=== PATIENT | female | born 1990 | race Caucasian/White ===

== ENCOUNTER 2018-12-08 21:18 | Observation (INO) | payer MEDICAID ==
[~2018-12-08] VITALS: Ht 165.1 cm; Wt 85.3 kg
[~2018-12-08 21:18] MED LIST: PREN-153 OR
[2018-12-08] MEDS ORDERED: URSO300C9 PO (22:42)
== END 2018-12-09 00:14 | disposition home or self-care (01) | DRG 566 ==
LOC: LDRP 21:18
PROVIDERS: ADMIT Obstetrics & Gynecology; ATTEND Obstetrics & Gynecology
DX: O26.893 Other specified pregnancy related conditions, third trimester (principal); N89.8 Other specified noninflammatory disorders of vagina; R10.9 Unspecified abdominal pain; Z3A.38 38 weeks gestation of pregnancy
CPT/HCPCS: 59025; 76815; 81002; G0378

== ENCOUNTER 2018-12-11 10:35 | Observation (INO) | payer MEDICAID ==
[~2018-12-11] VITALS: Ht 165.1 cm; Wt 86.2 kg
[~2018-12-11 10:35] MED LIST changes: +URSO300C9 PO
== END 2018-12-11 11:45 | disposition home or self-care (01) | DRG 566 ==
LOC: LDRP 10:35
PROVIDERS: ADMIT Specialist; ATTEND Specialist
DX: O26.893 Other specified pregnancy related conditions, third trimester (principal); O41.03X0 Oligohydramnios, third trimester, not applicable or unspecified; N89.8 Other specified noninflammatory disorders of vagina; L29.9 Pruritus, unspecified; Z3A.38 38 weeks gestation of pregnancy
CPT/HCPCS: 59025; 76818; 81002; G0378

== ENCOUNTER 2018-12-12 08:09 | Inpatient (IN) | payer MEDICAID ==
[~2018-12-12] VITALS: Ht 165.1 cm; Wt 86.2 kg
[2018-12-12] VITALS (12 sets, daily range): BP systolic 77–108; BP diastolic 47–59
[2018-12-12] MEDS ORDERED: DERMOPLAST 60ML BOTTLE TOP PRN ×2 (08:45→09:45)
[2018-12-12] MEDS ORDERED: WITCH HAZEL-GLYCERIN PAD TOP PRN ×2 (08:45→09:45)
[2018-12-12] MEDS ORDERED: NALBUPHINE HCL 10 MG/1ml INJECTION IV PRN ×2 (08:45→09:45)
[2018-12-12] MEDS ORDERED: PHISODERM TOP SOLN 240ML BTL TOP PRN ×2 (08:45→09:45)
[2018-12-12] MEDS ORDERED: LACTATED RINGER'S 1,000 ML IV SCH (08:45)
[2018-12-12] MEDS: LACTATED RINGER'S 1,000 ML IV SCH ×2 (08:51→16:27)
[2018-12-12 09:23] LABS: Basophils # (auto) 0.1 uL; Eosinophils # (auto) 0.1 uL; Eosinophils % (auto) 1.4 % (0.0-7.0); Hematocrit 36.7 % (36.0-46.0); Hemoglobin 12.1 g/dL (12.2-16.2); Lymphocytes # (auto) 1.5 uL; Lymphocytes % (auto) 14.4 % (10.0-50.0); Mean Corpuscular Hemoglobin 29.7 pg (28.0-32.0); Mean Corpuscular Hgb Conc. 32.9 g/dL (32.0-36.0); Mean Corpuscular Volume 90.2 fL (80.0-100.0); Monocytes # (auto) 0.7 uL; Monocytes % (auto) 6.7 % (0.0-12.0); Neutrophils # (auto) 7.7 uL; Neutrophils % (auto) 76.5 % (37.0-80.0); Nucleated Red Blood Cells % 0.1 %; Platelet Count (auto) 194 10^3/uL (140-450); Red Blood Cells 4.07 10^6/uL (4.0-5.20); White Blood Cell 10.1 10^3/uL (4.4-10.8)
[2018-12-12 09:27] LABS: Albumin 2.5 g/dL (3.4-5.0); Calcium 8.9 mg/dL (8.5-10.1); Potassium 3.8 mmol/L (3.5-5.1)
[2018-12-12 09:30] LABS: BUN/Creatinine Ratio 10.9; Bilirubin, Total 0.4 mg/dL (0.2-1.0); Total Protein 6.3 g/dL (6.4-8.2)
[2018-12-12 10:12] LABS: Urine Bacteria FEW /hpf (None Seen); Urine Blood Negative /uL (Negative); Urine Specific Gravity 1.019 (1.001-1.035); Urine WBC 1 /hpf (0 - 5)
[2018-12-12 10:33] LABS: INR < 0.93 (0.9-1.15); Partial Thromboplastin Time 26.2 sec (23.64-32.05)
[2018-12-12 11:27] LABS: Albumin 2.6 g/dL (3.4-5.0); Calcium 8.8 mg/dL (8.5-10.1); Potassium 4.1 mmol/L (3.5-5.1)
[2018-12-12 11:32] LABS: BUN/Creatinine Ratio 11.5; Bilirubin, Total 0.4 mg/dL (0.2-1.0); Total Protein 5.9 g/dL (6.4-8.2)
[2018-12-12] MEDS ORDERED: LACT. RINGERS/OXYTOCIN 20UNITS 1,000 ML IV SCH (12:35)
[2018-12-12] MEDS ORDERED: LIDOCAINE 2%HCL (LOCAL ANESTH.) INJ 20ML MDV ID ONE (12:45)
[2018-12-12] MEDS ORDERED: LACTATED RINGER'S 500 ML IV ONE (15:10)
[2018-12-12] MEDS ORDERED: LACTATED RINGER'S 1,000 ML IV ONE (15:10)
[2018-12-12] MEDS ORDERED: fentaNYL W ROPIVACAINE 150 ML EPI SCH (15:15)
[2018-12-12] MEDS ORDERED: fentaNYL CITRATE 100 MCG/2 ML VL IV ONE (15:15)
[2018-12-12] MEDS ORDERED: LIDOCAINE HCL 2 %PF INJ 10ML AMP IJ ONE (15:15)
[2018-12-12] MEDS ORDERED: LIDOCAINE 2%HCL (LOCAL ANESTH.) INJ 20ML MDV IJ ONE (15:15)
[2018-12-12] MEDS ORDERED: NALOXONE HCL 0.4 MG/ML VIAL IV ONE (15:15)
[2018-12-12] MEDS ORDERED: ePHEDrine SULFATE 50 MG/ML AMP IV ONE (15:15)
[2018-12-12] MEDS ORDERED: IBUPROFEN 600 MG TAB PO PRN (18:00)
[2018-12-12 19:09] LABS: Basophils # (auto) 0 uL; Basophils % (auto) 0.3 % (0.0-2.0); Eosinophils # (auto) 0.1 uL; Eosinophils % (auto) 0.4 % (0.0-7.0); Hematocrit 29.5 % (36.0-46.0); Hemoglobin 9.6 g/dL (12.2-16.2); Lymphocytes # (auto) 1.3 uL; Lymphocytes % (auto) 8.2 % (10.0-50.0); Mean Corpuscular Hemoglobin 29.8 pg (28.0-32.0); Mean Corpuscular Hgb Conc. 32.7 g/dL (32.0-36.0); Mean Corpuscular Volume 91.2 fL (80.0-100.0); Monocytes # (auto) 0.8 uL; Monocytes % (auto) 5.4 % (0.0-12.0); Neutrophils # (auto) 13.5 uL; Neutrophils % (auto) 85.7 % (37.0-80.0); Nucleated Red Blood Cells % 0.1 %; Platelet Count (auto) 204 10^3/uL (140-450); Red Blood Cells 3.24 10^6/uL (4.0-5.20); White Blood Cell 15.7 10^3/uL (4.4-10.8)
--- NOTE | 2018-12-12 22:40 | NUR ---
Ambulation: Pericare provided, clean underpad and underwear provided. Patient OOB with standby assistance by RN. Patient to bedside chair with RN standby assistance, no distress noted. Clean gown provided and bed linen changed. Patient verbalizes that she feels dizzy and lightheaded at this time, patient back to bed with RN assitiance. After approx, 10min in bed patient verbalizes that dizziness and lightheadedness have resolved. Will continue care.
[2018-12-13] VITALS (11 sets, daily range): BP systolic 98–131; BP diastolic 51–82
[2018-12-13] MEDS ORDERED: SODIUM CHLORIDE 0.9% 1,000 ML IV SCH
[2018-12-13] MEDS: ACETAMINOPHEN 325 MG TAB PO PRN ×2 (03:32→15:06)
--- NOTE | 2018-12-13 04:00 | NUR ---
Pericare provided, clean peripad and underwear provided.
[2018-12-13 05:59] LABS: Basophils # (auto) 0 uL; Basophils % (auto) 0.1 % (0.0-2.0); Eosinophils # (auto) 0.1 uL; Eosinophils % (auto) 0.3 % (0.0-7.0); Hematocrit 28.3 % (36.0-46.0); Hemoglobin 9.5 g/dL (12.2-16.2); Lymphocytes # (auto) 1.5 uL; Lymphocytes % (auto) 9.2 % (10.0-50.0); Mean Corpuscular Hemoglobin 30.5 pg (28.0-32.0); Mean Corpuscular Hgb Conc. 33.6 g/dL (32.0-36.0); Mean Corpuscular Volume 90.8 fL (80.0-100.0); Monocytes % (auto) 6.5 % (0.0-12.0); Neutrophils # (auto) 13.5 uL; Neutrophils % (auto) 83.9 % (37.0-80.0); Platelet Count (auto) 153 10^3/uL (140-450); Red Blood Cells 3.12 10^6/uL (4.0-5.20); Red Cell Distribution Width 14.2 % (11.8-14.3)
--- NOTE | 2018-12-13 08:08 | NUR ---
Call placed to Dr Dennis, updated her on PT status including urine output, VS, and current H&H. Orders received to yaima/c eyal at this time
--- NOTE | 2018-12-13 08:25 | NUR ---
Birch catheter dc'd Order to discontinue birch catheter. Birch dc'd with clean technique following deflation of balloon. Patient tolerated well with no complaints of pain. 600ml urine output. Continue care.
--- NOTE | 2018-12-13 08:30 | NUR ---
PT up OOB to chair, no assist. PT tolerated well, no s/s pain or distress. PT denies dizziness, denies lightheadedness
--- NOTE | 2018-12-13 09:25 | NUR ---
PT voided but forgot to use hat so unable to measure amount. PT also passed large clot about the size of a grapefruit. PT back to bed, fundus and lochia assessed, scant lochia and fundus firm 1 below umbilicus
[2018-12-13 11:06] LABS: RPR Non Reactive (Non Reactive)
[2018-12-14 02:57] VITALS: BP 91/53
[2018-12-14] MEDS ORDERED: TETANUS-DIPTH-ACEL PERTUSSIS 0.5ML SYRG IM ONE (04:00)
--- NOTE | 2018-12-14 04:00 | NUR ---
IV removal IV's in right hand DC'd with clean sterile technique, catheter fully intact. Pressure dressings applied to site. Patient tolerated well. NOTE:
--- NOTE | 2018-12-14 04:05 | NUR ---
Discharge: Discharge instructions given as ordered. Pt encouraged to follow up with GRANTS ANALYST as instructed. All questions and concerns addressed. Patient verbalized understanding. Medication reconciliation completed. All required/requested vaccines given to patient.
[2018-12-14 06:57] VITALS: BP 119/76
--- NOTE | 2018-12-14 08:30 | NUR ---
Discharge: Discharge instructions given as ordered. Pt encouraged to follow up with SENIOR REACTOR OPERATOR as instructed. All questions and concerns addressed. Patient verbalized understanding. Medication reconciliation completed and copy given to patient. All required/requested vaccines given and copies of vaccinations given to patient. Patient encouraged to prepare to depart unit.
--- NOTE | 2018-12-14 09:02 | NUR ---
Discharge: Patient taken to vehicle via ambulation refusing wheelchair with all personal belongings, accompanied by staff and family member. No distress noted at time of departure, no adverse changes in status since initial assessment.
== END 2018-12-14 09:00 | disposition home or self-care (01) | DRG 560 ==
LOC: OBSVTOIN 08:09 → LDRP 08:09
PROVIDERS: ADMIT Obstetrics & Gynecology; ATTEND Obstetrics & Gynecology
PROC: 10E0XZZ Delivery of Products of Conception, External Approach (ICD-10-PCS; principal; 2018-12-12)
DX: O80 Encounter for full-term uncomplicated delivery (principal); Z37.0 Single live birth; Z3A.39 39 weeks gestation of pregnancy
CPT/HCPCS: 36415; 36430; 51702; 59025; 59409; 80053; 81001; 84112; 85025; 85610; 85730; 86592; 86850; 86900; 86901; 86920; 90715; 94762; 96365; 96366; G0378; J2590; J3010

== ENCOUNTER 2019-03-15 06:21 | Day surgery (SDC) | payer MEDICAID ==
[~2019-03-15] VITALS: Ht 165.1 cm; Wt 79.4 kg
[~2019-03-15 06:21] MED LIST changes: -URSO300C9 PO
[2019-03-15] MEDS ORDERED: SUCCINYLCHOLINE CHLORIDE 20 MG/ML 10ML VIAL IV ONE (06:50)
[2019-03-15] MEDS ORDERED: SODIUM CHLORIDE LOCK 10 ML ONE (06:52)
[2019-03-15] MEDS ORDERED: ONDANSETRON HCL 4 MG/2 ML VIAL ONE (06:52)
[2019-03-15] MEDS ORDERED: MEPERIDINE HCL (25 MG/ML) 1ML VIAL ONE (06:52)
[2019-03-15] MEDS ORDERED: PROPOFOL 10 MG/ML 20 ML IV ONE (06:52)
[2019-03-15] MEDS ORDERED: MIDAZOLAM HCL 1MG/1ML-2 ML VIAL ONE (06:52)
[2019-03-15] MEDS ORDERED: fentaNYL CITRATE 100 MCG/2 ML VL ONE (06:52)
[2019-03-15] MEDS ORDERED: LIDOCAINE 2% (LOCAL ANESTH.) PF 5ml SDV ONE (06:59)
[2019-03-15] MEDS ORDERED: LIDOCAINE HCL 2% TOP JELLY 5ML TOP ONE (06:59)
[2019-03-15] MEDS ORDERED: HYDROmorphone HCL 2 MG/ML VL IV PRN (07:30)
[2019-03-15] MEDS ORDERED: fentaNYL CITRATE 100 MCG/2 ML VL IV PRN (07:30)
[2019-03-15] MEDS ORDERED: METOCLOPRAMIDE HCL 5MG/ml INJ 2ml VIAL IV PRN (07:30)
[2019-03-15] MEDS ORDERED: KETOROLAC TROMETH 30 MG/ML 1ML VIAL IV ONE (07:30)
[2019-03-15] MEDS ORDERED: GLYCOPYRROLATE 0.2 MG/ML 1ML VIAL ONE (08:28)
[2019-03-15] MEDS ORDERED: NEOSTIGMINE 1 MG/ML INJ (10mg/10ML VIAL) ONE (08:28)
[2019-03-15] MEDS ORDERED: KETOROLAC TROMETH 60MG/2ML VIAL ONE (08:28)
[2019-03-15] MEDS ORDERED: LACTATED RINGER'S 1,000 ML IV SCH (08:50)
[2019-03-15] MEDS ORDERED: ONDANSETRON HCL 4 MG/2 ML VIAL IV PRN (09:00)
[2019-03-15 09:40] VITALS: BP 124/71
== END 2019-03-15 09:55 | disposition home or self-care (01) ==
LOC: SUR 06:21
PROVIDERS: ATTEND Specialist
DX: Z30.2 Encounter for sterilization (principal); J45.909 Unspecified asthma, uncomplicated; E66.9 Obesity, unspecified; Z68.29 Body mass index [BMI] 29.0-29.9, adult
CPT/HCPCS: 58671; 86850; 86900; 86901; J0330; J1885; J2001; J2175; J2250; J2405; J2704; J2765; J3010

== ENCOUNTER 2019-06-21 06:41 | Emergency (ER) | payer MEDICAID ==
[~2019-06-21] VITALS: Ht 165.1 cm; Wt 74.8 kg
[2019-06-21 07:17] VITALS: BP 139/64
[2019-06-21] MEDS ORDERED: methylPREDNISolone SOD SUCC 125 MG/2 ML VL IM ONE (07:45)
[2019-06-21] MEDS: IPRATROPIUM BROM 0.5 MG/2.5ML INH SOL NEB ONE ×2 (07:45→07:49)
[2019-06-21] MEDS: ALBUTEROL SULF 2.5 MG/0.5ML(0.5%) NEB SOLN NEB ONE ×2 (07:45→07:49)
== END 2019-06-21 08:37 | disposition home or self-care (01) ==
LOC: ER 06:41
DX: J45.901 Unspecified asthma with (acute) exacerbation (principal)
CPT/HCPCS: 94640; 96372; 99283; J2930; J7611; J7644

== ENCOUNTER 2023-08-30 06:11 | Emergency (ER) | payer MEDICAID ==
[~2023-08-30] VITALS: Ht 165.1 cm; Wt 87.6 kg
[~2023-08-30 06:11] MED LIST changes: -PREN-153 OR; +PREN1TAB71 OR
[2023-08-30 07:06] LABS: Eosinophils # (auto) 0 10 ^3/uL (0-0.8)
[2023-08-30 07:08] LABS: Basophils # (auto) 0 10 ^3/uL (0-0.2); Basophils % (auto) 0.3 % (0.0-2.0); Eosinophils % (auto) 0.1 % (0.0-7.0); Lymphocytes % (auto) 5.4 % (10.0-50.0); Mean Corpuscular Hemoglobin 25.1 pg (28.0-32.0); Mean Corpuscular Hgb Conc. 32.4 g/dL (32.0-36.0); Mean Corpuscular Volume 77.4 fL (80.0-100.0); Monocytes % (auto) 5.7 % (0.0-12.0); Neutrophils # (auto) 15.9 10 ^3/uL (1.6-8.6); Neutrophils % (auto) 88.5 % (37.0-80.0); Red Blood Cells 4.39 10^6/uL (4.0-5.20); Red Cell Distribution Width 15.3 % (11.8-14.3); White Blood Cell 17.9 10^3/uL (4.4-10.8)
[2023-08-30 07:28] LABS: INR 1.05 (0.9-1.15); Partial Thromboplastin Time 28.6 SEC (24.5-34.5)
[2023-08-30 07:29] LABS: Alanine Aminotransferase 16 U/L (7-40); Albumin 4.5 g/dL (3.2-4.8); Alkaline Phosphatase 61 U/L (46-116); Anion Gap 10 (5-15); Aspartate Aminotransferase 12 U/L (13-40); BUN/Creatinine Ratio 17.6 (10.0-20.0); Bilirubin, Total 0.7 mg/dL (0.2-1.0); Blood Urea Nitrogen 13 mg/dL (9-23); Calcium 9.6 mg/dL (8.7-10.4); Carbon Dioxide 21 mmol/L (20-30); Chloride 103 mmol/L (98-107); Glucose 126 mg/dL (74-106); Lipase 22 U/L (12-53); Magnesium 1.5 mg/dL (1.6-2.6); Potassium 3.6 mmol/L (3.5-5.1); Sodium 134 mmol/L (136-145); Total Protein 7.4 g/dL (5.7-8.2)
[2023-08-30] MEDS: ASPirin-EC 325mg tab PO ONE (07:59)
[2023-08-30] MEDS: HYDROcodone-ACET 5/325MG TAB PO ONE (07:59)
[2023-08-30] MEDS: ONDANSETRON ODT 4 MG TAB PO ONE (08:00)
[2023-08-30] MEDS ORDERED: NAPR-1334 PO (11:42)
[2023-08-30 11:54] VITALS: BP 116/70; PULSE 81; RESP 18; TEMP 98.6; O2SAT 96
== END 2023-08-30 11:59 | disposition home or self-care (01) ==
LOC: ER 06:11
DX: R07.89 Other chest pain (principal); R10.2 Pelvic and perineal pain; D72.829 Elevated white blood cell count, unspecified; R00.0 Tachycardia, unspecified; Z79.899 Other long term (current) drug therapy
CPT/HCPCS: 36415; 71045; 80053; 83690; 83735; 83880; 84443; 84484; 84702; 85025; 85379; 85610; 85730; 93005; 99285; Q0162